=== PATIENT | female | born 1955 | race Caucasian/White ===

== ENCOUNTER 2017-01-21 10:00 | Emergency (ER) | payer MEDICARE ==
[~2017-01-21] VITALS: Ht 154.9 cm; Wt 92.5 kg
[~2017-01-21 10:00] MED LIST: ACYCLOVIR800 MG PO; ADVIL PM CAPLE1 EACH PO; ALEVE220 MG PO; ALLEGRA ALLERG180 MG PO; AMITRIPTYLINE H50 MG PO; AZO BLADDER CO300 MG; BACTRIM DS TAB1 EACH PO; BUPROPION HCL100 MG PO; CENTRUM SILVER1 EACH PO; CHLORASEPTIC177 M1 MT; CIPRO500 MG PO; CIPROFLOXACIN250 MG PO; COUMADIN1 MG PO; COZAAR50 MG PO; CYCLOBENZAPRINE10 MG PO; DITROPAN XL5 MG PO; DOXYCYCLINE HYC50 MG PO; DOXYCYCLINE MO100 M1 PO; DULCOLAX5 MG PO; FLOVENT DISKUS50 MCG INH; FLUTICASONE PRO16 GM NAS; GABAPENTIN300 MG PO; GARCINIA CAMBO1 EACH PO; HYDROCODON-ACE1 EA14; LOVENOX SUB-Q; MAGNESIUM250 M1 PO; METOPROLOL TAR100 MG PO; MS CONTIN15 MG PO; MUCUS DM 600-31 EACH PO; NORCO 10-325 T1 EACH PO; NORCO 5-325 TA1 EACH PO; NORCO 7.5-3251 EACH PO; OMEPRAZOLE20 MG PO; OXYBUTYNIN CHLOR5 M1 PO; OXYCODONE HCL E10 MG PO; OXYCODONE HCL5 MG PO; OXYCONTIN10 MG PO; PERCOCET 10-321 EACH PO; PERCOCET 5-3251 EACH PO; PROAIR HFA8.5 GM INH; PROBIOTIC1 EAC2 PO; PYRIDIUM200 MG PO; ROLAIDS PO; SERTRALINE HCL100 MG PO; SERTRALINE HCL50 MG PO; SILVADENE20 GM TOP; SUMATRIPTAN SU100 MG PO; TAMSULOSIN HCL0.4 MG PO; TESSALON PERLE100 MG PO; TOPROL XL25 MG PO; TRAZODONE HCL50 MG PO; TUMS ULTRA400 MG PO; ULTRAM50 MG PO; WARFARIN SODIUM4 MG PO; WARFARIN SODIUM5 MG PO; XARELTO10 MG PO; ZINC50 M1 PO; ZOFRAN ODT4 MG SL; ZOLOFT100 MG PO; ZYRTEC10 MG PO
[2017-01-21] MEDS ORDERED: VALTREX1000 MG PO (10:41)
[2017-04-27] MEDS ORDERED: GABAPENTIN300 MG PO (08:44)
[2017-05-01] MEDS ORDERED: LIDOCAINE1 EACH TD (11:54)
== END 2017-01-21 10:58 | disposition home or self-care (01) ==
LOC: ED 10:00
DX: B02.9 Zoster without complications (principal); J45.909 Unspecified asthma, uncomplicated; Z87.442 Personal history of urinary calculi; K21.9 Gastro-esophageal reflux disease without esophagitis; I10 Essential (primary) hypertension; F32.9 Major depressive disorder, single episode, unspecified; Z90.49 Acquired absence of other specified parts of digestive tract; Z90.710 Acquired absence of both cervix and uterus; Z88.0 Allergy status to penicillin; Z79.891 Long term (current) use of opiate analgesic; Z79.899 Other long term (current) drug therapy; Z79.2 Long term (current) use of antibiotics
CPT/HCPCS: 99283

== ENCOUNTER 2017-05-02 10:00 | Day surgery (SDC) | payer MEDICARE ==
[~2017-05-02] VITALS: Ht 154.9 cm; Wt 90.7 kg
[~2017-05-02 10:00] MED LIST changes: +LIDOCAINE1 EACH TD; +VALTREX1000 MG PO
[2017-05-02] MEDS ORDERED: CRANBERRY200 MG PO (10:36)
--- NOTE | 2017-05-02 14:02 | NUR ---
05/02/17 1402 Xiomara Sierra 1348 PT ARRIVED TO PACU WITH ORAL AIRWAY IN PLACE, RESP EVEN AND UNLABORED. BP NOTED BY OPTICAL SCIENTIST. 1359 ORAL AIRWAY REMOVED, PT RESPONDED TO VOICE, DENINES PAIN OR NAUSEA.
--- NOTE | 2017-05-02 15:14 | NUR ---
LATE ENTRY- 1455 PT UP TO RESTROOM VOIDED. BACK IN BED EATING JELLO.
[2017-05-02] MEDS ORDERED: HYDROCODON-ACE1 EAC8 PO (16:24)
--- NOTE | 2017-05-04 07:17 | OR ---
[facility] [address] [place], [place] [address] Signed DATE OF OPERATION: 05/02/2017 SURGEON: Adam Fatmia MD PREOPERATIVE DIAGNOSIS: Chronic right shoulder pain. POSTOPERATIVE DIAGNOSIS: Chronic right shoulder pain with subacromial bursitis and impingement. PROCEDURE: Shoulder arthroscopy with subacromial decompression and subacromial bursectomy. SURGEON: Adam Fatima MD ANESTHESIA: General. SPECIMENS AND COMPLICATIONS: There were no specimens or complications. TOURNIQUET: Not used. BLOOD LOSS: Minimal. WHAT WAS DONE: The patient was taken to the operating room. After anesthesia was induced, airway secured, the patient was placed in the modified beach chair position and she was prepped and draped in a routine sterile fashion. The bony topography was outlined with a skin marking pen and the arthroscope was inserted through the standard posterior portal. Intra-articularly the patient had areas of grade 2 to grade 3 chondral car changer the glenoid and over the humeral head. The biceps tendon was intact. The biceps anchor was intact. There was no visible rotator cuff tear from the bursal side of the shoulder. The remainder of the intra-articular exam was unremarkable. We then manipulated the scope into the subacromial space where there was rather a dense bursitis. A VAPR electrosurgical device was introduced through the anterolateral portal and used to do a subacromial bursectomy. We then removed the soft tissue off the undersurface of the acromion and used the 4 mm rissa to do a gentle subacromial decompression. Again, there was no full-thickness rotator cuff tear identifiable on the bursal side. The subacromial space was irrigated and drained. The portals were closed and a sterile dressing applied. The patient was placed in a sling, awakened, taken to recovery room where she arrived in stable condition. Electronically Signed By: ADAM FATIMA MD 05/04/17 0717 PATIENT NAME: NOMI HAUSER OPERATIVE REPORT DATE OF : 53 PHYSICIAN: ADAM FATIMA MD REPORT #: [id number] REPORT IS CONFIDENTIAL AND NOT TO BE RELEASED WITHOUT AUTHORIZATION [address] [place], [place] [address] Signed Adam Fatima MD [facility]/MODL /[id number] Electronically Signed By: ADAM FATIMA MD 05/04/17 0717 PATIENT NAME: NOMI HAUSER ABDI OPERATIVE REPORT DATE OF : 53 PHYSICIAN: ADAM FATIMA MD REPORT #: [id number] REPORT IS CONFIDENTIAL AND NOT TO BE RELEASED WITHOUT AUTHORIZATION
== END 2017-05-02 16:40 | disposition home or self-care (01) ==
LOC: DS 10:00 → OPS 10:00 → DS 12:15 → OPS 16:40
PROVIDERS: Orthopaedic Surgery
PROC: 0RBJ4ZZ Excision of Right Shoulder Joint, Percutaneous Endoscopic Approach (ICD-10-PCS; principal; 2017-05-02 11:30)
DX: M75.51 Bursitis of right shoulder (principal); M25.811 Other specified joint disorders, right shoulder; J45.909 Unspecified asthma, uncomplicated; I10 Essential (primary) hypertension; F32.9 Major depressive disorder, single episode, unspecified; Z86.718 Personal history of other venous thrombosis and embolism; Z86.711 Personal history of pulmonary embolism; Z88.0 Allergy status to penicillin; Z79.01 Long term (current) use of anticoagulants; Z79.899 Other long term (current) drug therapy
CPT/HCPCS: 01400; 64415; 76942; J1100; J1170; J1885; J2250; J2405; J2704; J2795; J3010; J7120

== ENCOUNTER 2020-08-16 11:06 | Inpatient (IN) | payer MEDICARE, OTHER ==
[~2020-08-16] VITALS: Ht 154.9 cm; Wt 99.9 kg
[~2020-08-16 11:06] MED LIST changes: +CRANBERRY200 MG PO; +CYMBALTA30 MG PO; +FLOVENT HFA12 G1 INH; +HYDROCHLOROTHIA25 MG PO; +HYDROCODON-ACE1 EAC8 PO; +LOSARTAN POTAS100 MG PO; +NORVASC5 MG PO; +PRAVACHOL40 MG PO; +TYLENOL EXTRA500 MG PO
--- NOTE | 2020-08-16 15:40 | NUR ---
PT ARRIVED FROM ER. PT AMBULATED TO BATHROOM, VOIDED. PT 86% WHEN RETURNED FROM BATHROOM, PLACED ON 2L NC, LUNG SOUNDS CLEAR, SOB WITH ACTIVITY. PT WITH COMPLAINT OF HEADACHE 11/26. BOWEL TONES ACTIVE, DENIES NAUSEA, THIRSTY, PROVIDED WITH WATER AND ASSISTED TO ORDER DINNER. CMS INTACT, WITHOUT EDEMA. PT WITH VARIOUS SCARS FROM PREVIOUS SURGERIES, SKIN GROSSLY INTACT. IV ZITHROMAX INFUSING. ADMISSION INTAKE COMPLETED. PT DENIES OTHER NEEDS AT THIS TIME.
--- NOTE | 2020-08-16 16:54 | NUR ---
PT REQUESTING TYLENOL FOR HEADACHE, GIVEN. PT VOIDING QS. PT DENIES OTHER NEEDS AT THIS TIME.
--- NOTE | 2020-08-16 18:32 | NUR ---
PT ADMITTED FROM ED FOR PNEUMONIA. PT REQUIRING 2L NC TO MAINTAIN O2 SATS >90%, SOB WITH EXERTION. RECEIVING LR AT 200ML/HR. TOLERATING REGULAR DIET. PT COMPLAINT OF HEADACHE, GIVEN TYLENOL X1. SBA TO BATHROOM, VOIDING QS.
--- NOTE | 2020-08-16 19:15 | NUR ---
BEDSIDE REPORT RECEIVED FROM OFFGOING RNALL. PT RESTING IN RECLINER. DENIES NEEDS AT THIS TIME. CALL LIGHT IN REACH.
--- NOTE | 2020-08-16 20:00 | NUR ---
1 PA/SBA FROM CHAIR TO BATHROOM TO BED.
--- NOTE | 2020-08-16 20:50 | NUR ---
PT ASSESSMENT COMPLETE. PT RATES HEADACHE PAIN 6-01/26. STATES THAT COFFEE EARLIER WAS EFFECTIVE IN REDUCING HEADACHE. REQUESTS MORE COFFEE. PT REPORTS SOB AFTER GETTING UP TO USE THE BATHROOM. PT COUGHING DURING ASSESSMENT. REPORTS INCREASED SOB AFTER COUGH. SAO2 86% ON 2 L, O2 INCREASED TO 3 LPM, O2 @ 92%. PT REPORTS SOB IMPROVED, "THAT MADE IT EASIER". PT DENIES NAUSEA. PT REPORTS CHRONIC NUMBNESS AND TINGLING TO BILATERAL TOES. IV SITES FLUSHED X 2. WNL. PT UP TO BATHROOM AND BACK TO BED WITH THIS COREMAKER PIPE PT SOB AFTER RETURNING TO RECLINER. PT RECOVERS AFTER SITTING UPRIGHT. PT DENIES FURTHER NEEDS AT THIS TIEM. PERSONIAL CARE ITEMS IN REACH. CALL LIGHT PRESENT.
--- NOTE | 2020-08-16 21:00 | NUR ---
ANSWERED CALL LIGHT. SBA TO THE BATHROOM. FRESH PULL UPS PROVIDED. PATIENT IS UP IN THE CHAIR. CALL LIGHT WITHIN REACH.
--- NOTE | 2020-08-16 22:15 | NUR ---
LOG SORTING SUPERVISOR CHECKS ON PT. PT REPORTS THAT SHE WILL BE UNABLE TO GET THE [employer]PER[employer] SPECIALIST FOR HER IMPLANTED PAIN PUMP IN HER BACK. PT STATES CONCERN THAT PAIN WILL ESCALATE WHEN CHARGE DIES AROUND 0200. SHE STATES THAT HER FRIEND WILL DELIVER THE [employer] SPECIALIST IN THE AM. PT REQUESTS PRN OPIOD PAIN MEDICATION. HOSPITALIST NOTIFIED, NEW ORDER RECEIVED.
--- NOTE | 2020-08-17 02:02 | NUR ---
PT ASSESSMENT COMPLETE. PT UTILIZES CALL LIGHT, REQUESTS TO USE INHALER. STATES THAT SHE IS SOB AFTER USING THE BATHROOM. ALSO REPORTS PAIN WITH COUGHING. PRN INHALER ADMINISTERED INDEPENDENTLY BY PT. PT REPORTS PAIN 6/10 WITH COUGH, HEADACHE, AND BACK. PRN PAIN MEDCIATION ADMINISTERED, SEE EMAR. PT DENIES NAUSEA AT THIS TIME. LUNG SOUNDS CLEAR. SOB IMPROVES DURING ASSESSMENT. SAO2 91 ON 3 L. PT REPORTS THAT SHE IS NOW PRODUCING SMALL AMOUNTS OF SPUTUM AT A TIME. SPUTUM SAMPLE SEND TO LAB. ASSESSMENT OTHERWISE UNCHANGED. PT DENIES FURTHER NEEDS AT THIS TIME. CALL LIGHT IN REACH.
--- NOTE | 2020-08-17 02:49 | NUR ---
PT CALLED, REQUESTED COFFEE. GIVEN PER PT CHOICE. NO OTHER NEEDS. WATCHING TV. O2 IN PLACE, CALL LIGHT WITHIN REACH.
--- NOTE | 2020-08-17 05:10 | NUR ---
PT RESTING IN BED, LAYING ON R SIDE. STATES "HELLO" WHEN ASSISTANT PLANT CONTROLLER OPENS THE DOOR. PT REPORTS LINGERING HEADACHE. RATES PAIN 4/10. STATES THAT SHE IS NOT SURE WHAT WOULD HELP WITH HEADACHE. PT STATES SHE FEELS IT IS SINUS RELATED PAIN CHANGES LOCATION WITH MOVEMENT. PT STATES THAT SHE HAS NOT BEEN ABLE TO GET TO SLEEP OVERNIGHT. REQUESTS JELLO AND CRACKERS, PROVIDED. DENIES FURTHER NEEDS. CALL LIGHT IN REACH.
--- NOTE | 2020-08-17 07:10 | NUR ---
PT SITTING UP IN CHAIR. C/O SOB WHILE AMBULATING. 3L O2 NC. SHIFT REPORT RECIEVED BY RN. CALL LIGHT IN REACH.
[2020-08-17] MEDS ORDERED: PROBIOTIC PEAR1 EACH PO (09:11)
[2020-08-17] MEDS ORDERED: AZO BLADDER CO300 MG PO (09:12)
[2020-08-17] MEDS ORDERED: STRESS B WITH1 EACH PO (09:14)
--- NOTE | 2020-08-17 09:15 | NUR ---
MED REC COMPLETE
--- NOTE | 2020-08-17 09:31 | NUR ---
PT SITTING UP IN CHAIR. SCHEDULED MEDS GIVEN. ASSESSMENT COMPLETE. IV CDI. TITRATED O2 FROM 3L TO 1L NC. 95% O2 SAT. PT STATES HAVING SOB DURING AMBULATION BUT NOT RESTING. BOWEL TONES ACTIVE. TYLENOL ADMINISTERED PER REQUEST. C/O ADRIAN 07/29. CALL LIGHT IN REACH.
--- NOTE | 2020-08-17 10:12 | NUR ---
PT SITTING UP IN CHAIR. 95% ON 1L NC. TITRATED TO RA. PTS SATURATIONS STAYED AT 95%. PT DENEIS SOB. ABX COMPLETED, PT SALINE LOCKED.
--- NOTE | 2020-08-17 11:39 | NUR ---
PT UP IN CHAIR. EYES CLOSED. RR WNL WITH UNLABORED BREATHING. CALL LIGHT IN REACH.
--- NOTE | 2020-08-17 12:07 | NUR ---
PT SITTING UP IN CHAIR. O2 SAT 95% RA. C/O SOME SOB. BUT TOLERABLE. 3 UNITS OF INSULIN ADMINISTERED. MEAL TRAY IN PLACE. CALL LIGHT IN REACH.
--- NOTE | 2020-08-17 13:50 | NUR ---
IN ROOM. PT STATES THAT SHE WOULD LIKE TO HAVE O2 AT HOME DUE TO SOB. MD EXPLAINED OF NEB TREATMENT BEING MORE EFFECTIVE. O2 SATS 95-100% RA. PT VERBALIZED UNDERSTANDING. WILL BE STAYING FOR ANOTHER NIGHT. CALL LIGHT IN REACH.
--- NOTE | 2020-08-17 16:23 | NUR ---
PT SITTING UP IN CHAIR. PT DENIES SOB WHILE RESTING. 95% RA. DENIES PAIN. ASSESSMENT COMPLETE. TRACE EDEMA ON BLE. ELEVATED LEGS. CALL LIGHT IN REACH.
--- NOTE | 2020-08-17 17:08 | EKG ---
[facility] [address] [facility] [place] [address] Signed Normal sinus rhythm Possible Inferior infarct , age undetermined Cannot rule out Anterior infarct , age undetermined Abnormal ECG When compared with ECG of 18-NOV-2019 11:06, Borderline criteria for Inferior infarct are now present Confirmed by BALTAZAR HARRIS DO ([id number]) on 08/17/2020 5:08:26 PM Electronically Signed By: BALTAZAR HARRIS DO 08/17/20 1708 PATIENT NAME: NOMI HAUSER Electrocardiogram DATE OF : 53 PHYSICIAN: BALTAZAR HARRIS DO REPORT #: [id number] REPORT IS CONFIDENTIAL AND NOT TO BE RELEASED WITHOUT AUTHORIZATION
--- NOTE | 2020-08-17 17:16 | NUR ---
PT SITTING UP IN CHAIR. 1 UNIT OF INSULIN GIVEN. 146 FOR BLOOD SUGAR. DINNER IN ROOM. CALL LIGHT IN REACH.
--- NOTE | 2020-08-17 18:02 | NUR ---
PT STATES HAVING SOB WHILE AMBULATING. DENIES PAIN. PRN TYLENOL NOTED. IV SALINE LOCKED. PT ON A REGULAR DIET. TOLERATING WELL. CPAP ORDERED FOR THE NIGHT. INDEPENDENT AND VOIDS IN THE BATHROOM.
--- NOTE | 2020-08-17 19:40 | NUR ---
bedside report received from offgoing rn, scottie. pt sitting up in recliner. participates in report. denies needs at this time. call light in reach.
--- NOTE | 2020-08-17 22:09 | NUR ---
PT ASSESSMENT COMPLETE. PT REQUESTS TYLENOL FOR 3/10 HEADACHE PAIN. DENIES SOB AT THIS TIME, TOLERATING RA WELL, PT STATES THAT NEBS ARE VERY HELPFUL TO HER. LUNG SOUNDS CLEAR THROUHGOUT. PT REPORTS OCCASIONAL PRODUCTIVE COUGH, MOST RECENTLY GREEN IN COLOR. PT WITH GENERALIZED EDEMA TO BLE. STATES THIS IS NORMAL AT THE END OF THE DAY FOR HER. IV SL X 2. FLUSHED, WNL. PT REQUESTS COFFEE AND SNACK, PROVIDED. PT DENIES FURTHER NEEDS AT THIS TIME. CALL LIGHT IN REACH.
--- NOTE | 2020-08-18 00:52 | NUR ---
RESERVOIR ENGINEERING CONSULTANT TO ROOM FOR CPAP ALARMING. PT FOUND STANDING AT BEDSIDE. PT STATES THAT SHE CANNOT TOLERATE WEARING THE CPAP PROVIDED BY THE HOSPITAL. STATES THAT THE MASK IS NOT COMFORTABLE. REPORTS FEELING ANXIOUS AND SOB. RESERVOIR ENGINEERING CONSULTANT TALKED WITH PT FOR A WHILE, PT RECOVERS WELL. STATES THAT SHE THINKS SHE WILL SLEEP OK WITHOUT CPAP. INSTRUCTED PT TO CALL FOR NEEDS. CALL LIGHT IN REACH.
--- NOTE | 2020-08-18 03:00 | NUR ---
PT RESTING IN BED WITH EYES CLOSED, LYING ON HER SIDE. PT DOES NOT WAKE WHILE TRUSS DRIVER HELPER AT DOORWAY. CALL LIGHT IN REACH.
--- NOTE | 2020-08-18 04:37 | NUR ---
PT RESTING IN BED ON R SIDE. RESPIRATIONS EVEN AND UNLABORED. PT DOES NOT WAKE WHILE UTILITY WORKER ROLLER SHOP AT DOORWAY. CALL LIGHT IN REACH.
--- NOTE | 2020-08-18 05:39 | NUR ---
PT ASSESSMENT COMPLETE. PT UTILIZES CALL LIGHT. STATES "I JUST WANTED TO SAY GOOD MORNING." COFFEE AND WATER TAKEN TO ROOM. PT DENIES PAIN OR NAUSEA. STATEES THAT SHE IS SOB AFTER GETTING OOB AND TO THE BATHROOM. PT STRAIGHTENING UP SIDE TABLE COMMERCIAL DIRECTOR ENTERS THE ROOM. LUNG SOUNDS CLEAR. SA02 100%. PT REPORTS OCCASIONAL COUGH CONTINUES WITH SCANT MUCOUS PRODUCTION, GREEN IN COLOR. GENERALIZED EDEMA TO BLE CONTINUES. DIET EDCUATION AND LOW SUGAR OPTIONS DISCUSSED WITH PT. PT IS RESISTANT, BUT STATES SHE UNDERSTANDS WILL HAVE TO CHANGE HER LIFESTYLE. PT DENIES FURTHER NEEDS AT THIS TIME. CALL LIGHT IN REACH.
--- NOTE | 2020-08-18 08:30 | NUR ---
PT UP IN THE CHAIR WITH MORNING MEAL DENIES FURTHER NEEDS OF
--- NOTE | 2020-08-18 09:57 | NUR ---
DR HARRIS IN EARLIER TO SEE THIS PT DISCUSSES PLAN GOING FORWARD AND ANSWERS ALL QUESTIONS AND CONCERNS. DC RACE ENGINE BUILDER IN AFTER THAT TO DISCUSS NEEDS AT DC
--- NOTE | 2020-08-18 10:00 | NUR ---
Spoke with Patricia. She plans on dc to home today. We discuss 02 and are awaiting an 02 qualifier. Initially pt stated she would pay out of pocket for 02, we discussed 02 is by prescription only and she would need to qualify. She stated understanding. She denies needs to go home, and states she already is feeling better and less pressure in her chest. She has a walker, cane, and wc at home. Neighbors will assist her. She is anxious to get home to her poddle. States she has 2 1/2 boxes of neb treatments. Per o2 qualifier, but does not need o2 at home. Pt ready for dc, denies needs.
--- NOTE | 2020-08-18 10:00 | NUR ---
IN ROOM WITH RT TO SALINE LOCK pt FOR O2 QUALIFY TEST. pt JOVIAL AND HAPPY AT PROSPECT OF DISCHARGE.
[2020-08-18] MEDS ORDERED: DOXYCYCLINE HY100 MG PO (10:04)
--- NOTE | 2020-08-18 11:32 | NUR ---
IN ROOM FOR DISCHARGE EDUCATION. pt IS VERY MOTIVATED TO BEGIN 60GM CARB DIET AT HOME AND APPEARS KNOWLEDGABLE IN HOME CARE FOLLOWING DISCHARGE. pt STATES SHE WILL DRIVE HERSELF HOME HER VEHICLE IS HERE; pt PLANS TO EAT LUNCH HERE AND THEN DISCHARGE.
== END 2020-08-18 12:35 | disposition home or self-care (01) | DRG 193 ==
LOC: ED 11:06 → MS 14:07
PROVIDERS: ADMIT Student in an Organized Health Care Education/Training Program; ATTEND Student in an Organized Health Care Education/Training Program
DX: J15.4 Pneumonia due to other streptococci (principal); J96.91 Respiratory failure, unspecified with hypoxia; Z20.822 Contact with and (suspected) exposure to COVID-19; I10 Essential (primary) hypertension; F32.9 Major depressive disorder, single episode, unspecified; K21.9 Gastro-esophageal reflux disease without esophagitis; M79.7 Fibromyalgia; J45.909 Unspecified asthma, uncomplicated; Z79.899 Other long term (current) drug therapy; Z86.711 Personal history of pulmonary embolism
CPT/HCPCS: 36415; 71045; 80048; 80053; 83605; 83735; 84484; 85025; 93005; 93010; 94640; 94660; 94664; 94667; 94760; 94761; 96374; 96375; 99285-25; C9803; J0456; J0696; J1100; J1650; J1815; J7060; J7121; U0003

== ENCOUNTER 2020-08-28 22:14 | Emergency (ER) | payer MEDICARE, OTHER ==
[~2020-08-28] VITALS: Ht 154.9 cm; Wt 99.8 kg
[~2020-08-28 22:14] MED LIST changes: +AMOX TR-K CLV1 EAC1 PO; +AZO BLADDER CO300 MG PO; +DOXYCYCLINE HY100 MG PO; +PROBIOTIC PEAR1 EACH PO; +STRESS B WITH1 EACH PO
--- OUTSIDE RECORDS SUMMARY | 2020-08-28 22:18 | XMS ---
PreManage Notification: NOMI HAUSER Security Receptionist Events No recent Security Events currently on file CRITERIA MET - [facility] - 2 Visits in 30 Days CARE PROVIDERS There are no care providers on record at this time. Gyu has no Care Guidelines for this patient. [facility] (12 MO.) [facility] NOTE: Visits indicate total known visits. ED/[facility] VISIT TRACKING (12 MO.) [facility] COMPLAINT: - FELL, SHOULDER INJURY 08/16/2020 11:07 [facility] [place] TYPE: Emergency COMPLAINT: - LOW OXYGEN INPATIENT VISIT TRACKING (12 MO.) 08/16/2020 14:07 [facility] [place] TYPE: Medical Surgical COMPLAINT: - PNA DIAGNOSES: - Essential (primary) hypertension - Unspecified asthma, uncomplicated - Gastro-esophageal reflux disease without esophagitis - Respiratory failure, unspecified with hypoxia - Pneumonia, unspecified organism - Pneumonia due to other streptococci - Major depressive disorder, single episode, unspecified - Fibromyalgia - Personal history of pulmonary embolism - Other intermediate (current) drug therapy [email or web address]
[2020-08-29] MEDS ORDERED: HYDROCODON-ACE1 EA10 PO (00:34)
== END 2020-08-29 01:20 | disposition home or self-care (01) ==
LOC: ED 22:14
DX: S43.035A Inferior dislocation of left humerus, initial encounter (principal); S43.015A Anterior dislocation of left humerus, initial encounter; W01.198A Fall on same level from slipping, tripping and stumbling with subsequent striking against other object, initial encounter; J45.909 Unspecified asthma, uncomplicated; K21.9 Gastro-esophageal reflux disease without esophagitis; I10 Essential (primary) hypertension; Z79.899 Other long term (current) drug therapy
CPT/HCPCS: 23650; 73030; 99152; 99283-25; J2405; J2704; J7030

== ENCOUNTER 2024-08-06 15:02 | Emergency (ER) | payer MEDICARE, OTHER ==
[~2024-08-06] VITALS: Ht 154.9 cm; Wt 108.0 kg
[~2024-08-06 15:02] MED LIST changes: +HYDROCODON-ACE1 EA10 PO
[2024-08-06] MEDS ORDERED: ASPIRIN 81 MG CHEW PO ONE (15:15)
[2024-08-06] MEDS ORDERED: NITROGLYCERIN 0.4 MG SUBL SL PRN (15:30)
[2024-08-06] MEDS ORDERED: SODIUM CHLORIDE 0.9% 500 ML IV PRN (15:30)
[2024-08-06 15:35] LABS: HEMOGLOBIN 13.8 g/dL (12.0-18.0); MCH 33.1 (27-36); MCHC 33.5 g/dl (30-36); MCV 98.8 fl (81-99); PLATELET COUNT 526 K/uL (140-440); RBC 4.15 M/ul (4.3-5.7); RDW 14.8 (10.5-15.0)
[2024-08-06 15:53] LABS: BASOPHILS, MANUAL DIFF 1; EOSINOPHILS, MANUAL DIFF 2; LYMPHOCYTES, MANUAL DIFF 76; MONOCYTES, MANUAL DIFF 4; NEUTROPHILS, MANUAL DIFF 17
[2024-08-06 16:01] LABS: ALBUMIN 3.4 g/dL (3.4-5.0); ALBUMIN/GLOBULIN RATIO 0.74 (1.1-2.4); ANION GAP 14.4 (7-21); BILIRUBIN, TOTAL 0.3 mg/dL (0.2-1.0); BUN/CREATININE RATIO 17.44 (6.0-28.6); CALCIUM 9.6 mg/dL (8.5-10.1); CREATININE, SERUM 0.86 mg/dL (0.55-1.02); MAGNESIUM 1.3 mg/dL (1.8-2.4); POTASSIUM 3.4 mmol/L (3.5-5.1)
[2024-08-06] MEDS ORDERED: MAGNESIUM SULFATE 2 GM/50 ML BAG IV ONE (17:15)
[2024-08-06 19:16] VITALS: BP 167/93
--- NOTE | 2024-08-07 17:30 | EKG ---
[facility] [address] [facility] [place], [place] [address] Signed Normal sinus rhythm Cannot rule out Inferior infarct (cited on or before 16-AUG-2020) Abnormal ECG When compared with ECG of 16-AUG-2020 11:30, No significant change was found Confirmed by Sonam De Souza MD ([id number]) on 08/07/2024 5:30:34 PM Electronically Signed By: SONAM DE SOUZA MD 08/07/24 1730 PATIENT NAME: NOMI HAUSER Electrocardiogram DATE OF : 53 PHYSICIAN: SONAM DE SOUZA MD REPORT #: [id number] REPORT IS CONFIDENTIAL AND NOT TO BE RELEASED WITHOUT AUTHORIZATION
== END 2024-08-06 19:16 | disposition short-term general hospital (02) ==
LOC: ED 15:02
PROVIDERS: Emergency Medicine
DX: I20.89 Other forms of angina pectoris (principal); I10 Essential (primary) hypertension; E78.5 Hyperlipidemia, unspecified; J45.909 Unspecified asthma, uncomplicated; K21.9 Gastro-esophageal reflux disease without esophagitis; Z87.891 Personal history of nicotine dependence; Z79.899 Other long term (current) drug therapy
CPT/HCPCS: 36415; 71045; 80053; 83735; 83880; 84484; 85025; 93005; 93010; 96365; 99285-25; A9270; J3475; J7040